=== PATIENT | male | born 1960 | race Caucasian/White ===

== ENCOUNTER 2017-01-26 14:11 | Observation (INO) | payer OTHER ==
--- NOTE | 2017-01-26 14:50 | XR ---
EXAMINATION TYPE: XR chest 2V DATE OF EXAM: 01/26/2017 COMPARISON: NONE HISTORY: Shortness of breath TECHNIQUE: Frontal and lateral views of the chest are obtained. FINDINGS: Scattered senescent parenchymal changes noted. Hyperinflation compatible with COPD. No evidence for infiltrate. No evidence for atelectasis. Heart size is stable. Mediastinal structures are stable and grossly unremarkable. No evidence for hilar prominence. Degenerative changes dorsal spine. IMPRESSION: 1. No evidence for acute pulmonary disease.
--- NOTE | 2017-01-26 14:58 | ED ---
Chest Pain HPI - General Chief Complaint: Chest Pain Stated Complaint: Chest pain Time Seen by Provider: 01/26/17 14:11 Source: patient, EMS, RN notes reviewed Mode of arrival: EMS Limitations: no limitations - History of Present Illness Initial Comments: This is a 56-year-old male who presents by EMS with complaints of left-sided chest pain. It woke him up from sleep this morning it was stabbing in nature located below his left nipple of his breast. Assessment nausea he was not feeling himself. He states he originally pain was 7-8/10 in severity is now 4-5 /10 he was given aspirin as well as 2 nitroglycerin. The first nitroglycerin did not help much a second one seemed to. He states this does feel different than the pain he had from a heart attack 20 years ago. He is currently in rehab [facility] for last 19 days for heroin and cocaine and alcohol abuse. He does relate he had a stress test about 2 months ago that was normal. He also states he had an MRI done of his chest he thought he may have left-sided breast cancer he is not sure though he is got conflicting reports. MD Complaint: chest pain - Related Data Home Medications Medication Instructions Recorded Confirmed Multivitamins, Thera [Multivitamin 1 tab PO DAILY 01/26/17 01/26/17 (formulary)] Sertraline HCl [Zoloft] 50 mg PO DAILY 01/26/17 01/26/17 busPIRone HCl [Buspar] 10 mg PO BID 01/26/17 01/26/17 traZODone HCL 150 mg PO HS 01/26/17 01/26/17 Allergies Allergy/AdvReac Type Severity Reaction Status Date / Time Penicillins Allergy Rash/Hives Verified 01/26/17 14:40 Review of Systems ROS Statement: Those systems with pertinent positive or pertinent negative responses have been documented in the HPI. ROS Other: All systems not noted in ROS Statement are negative. EKG Findings - EKG Results: EKG: interpreted by DANIEL, sinus rhythm (Sinus rhythm with rate of 85 MN interval 134 QRS 90 QT/QTC of 466/445 sinus bradycardia no acute ST-T wave changes there is poor R-wave progression noted there is no change from the EKG submitted by EMS.) Past Medical History Past Medical History: Hyperlipidemia, Hypertension, Myocardial Infarction ([place]) History of Any Multi-Drug Resistant Organisms: None Reported Past Surgical History: Orthopedic Surgery, Tonsillectomy Past Psychological History: No Psychological Hx Reported Smoking Status: Current every day smoker Past Alcohol Use History: Daily Past Drug Use History: Heroin, Prescription Drug Abuse General Exam - General Exam Comments Initial Comments: This is a well-developed asthenic appearing male Limitations: no limitations General appearance: alert, in no apparent distress Head exam: Present: atraumatic, normocephalic, normal inspection Eye exam: Present: normal appearance, PERRL, EOMI. Absent: scleral icterus, conjunctival injection, periorbital swelling ENT exam: Present: normal exam, mucous membranes moist Neck exam: Present: normal inspection. Absent: tenderness, meningismus, lymphadenopathy Respiratory exam: Present: normal lung sounds bilaterally, chest wall tenderness (Necessary chest wall costochondral tenderness palpation some tenderness over the left breast nipple area note definite mass palpable.). Absent: respiratory distress, wheezes, rales, rhonchi, stridor Cardiovascular Exam: Present: normal rhythm, bradycardia, normal heart sounds. Absent: systolic murmur, diastolic murmur, rubs, gallop, clicks GI/Abdominal exam: Present: soft, normal bowel sounds. Absent: distended, tenderness, guarding, rebound, rigid Extremities exam: Present: normal inspection, full ROM, normal capillary refill. Absent: tenderness, pedal edema, joint swelling, calf tenderness Back exam: Present: normal inspection Neurological exam: Present: alert, oriented X3, CN II-XII intact Psychiatric exam: Present: normal affect, normal mood Skin exam: Present: warm, dry, intact, normal color. Absent: rash Course Vital Signs 01/26/17 01/26/17 14:15 16:15 Temperature 98.3 F Pulse Rate 54 L 53 L Respiratory 18 18 Rate Blood Pressure 120/77 133/80 O2 Sat by Pulse 100 99 Oximetry Chest Pain MDM - MDM I did review the imaging and reports no acute findings. Patient is still having intermittent episodes of some sharp pain he does state that the nitroglycerin did help before he had a discussion regarding atypical chest pain he will be admitted I did discuss case with the hospitalist service. Disposition Clinical Impression: Atypical chest pain Disposition: ADMITTED IP TO THIS [facility] Condition: Stable Referrals: None,Stated [Primary Care Provider] - 1-2 days
[2017-01-26 15:34] LABS: Basophils # (A) 0.1 k/uL (0-0.2); Basophils % (A) 1 %; CH 33.1; Eosinophils # (A) 0.2 k/uL (0-0.7); Eosinophils % (A) 3 %; HCT 46.1 % (39.0-53.0); HDW 2.35; HGB 15.5 gm/dL (13.0-17.5); Luc # (Auto) 0.13; Luc % (Auto) 2; Lymphocytes # (A) 2.2 k/uL (1.0-4.8); Lymphocytes % (A) 26 %; MCH 32.9 pg (25.0-35.0); MCHC 33.6 g/dL (31.0-37.0); MCV 97.7 fL (80.0-100.0); Mean Platelet Volume 7.3; Monocytes # (A) 0.4 k/uL (0-1.0); Monocytes % (A) 5 %; Neutrophils # (A) 5.6 k/uL (1.3-7.7); Neutrophils % (A) 65 %; RBC 4.72 m/uL (4.30-5.90); RDW 14.1 % (11.5-15.5); WBC 8.7 k/uL (3.8-10.6); WBC (Perox) 7.86
[2017-01-26 15:39] LABS: INR 1.1 (<1.2); Partial Thromboplastin Time 23.9 sec (22.0-30.0); Prothrombin Time 11.1 sec (9.0-12.0)
[2017-01-26 15:47] LABS: ALT 27 U/L (21-72); AST 19 U/L (17-59); Alkaline Phosphatase 62 U/L (38-126); Amylase 57 U/L (30-110); Anion Gap 8 mmol/L; Blood Urea Nitrogen 9 mg/dL (9-20); Calcium 9.4 mg/dL (8.4-10.2); Carbon Dioxide 29 mmol/L (22-30); Chloride 102 mmol/L (98-107); Glucose 86 mg/dL (74-99); Magnesium 2.2 mg/dL (1.6-2.3); Non-African American GFR(MDRD) >60 (>60 ml/min/1.73 sqM); Potassium 4.8 mmol/L (3.5-5.1); Sodium 139 mmol/L (137-145); Total Bilirubin 0.4 mg/dL (0.2-1.3); Total Protein 6.3 g/dL (6.3-8.2)
[2017-01-26 15:49] LABS: Creatine Kinase 39 U/L (55-170)
[2017-01-26 16:03] LABS: Creatine Kinase MB 1.2 ng/mL (0.0-2.4); Troponin I <0.012 ng/mL (0.000-0.034)
[2017-01-26] MEDS ORDERED: KETOROLAC 30 MG/ML 1 ML VIAL IVP STA (16:07)
[2017-01-26] MEDS ORDERED: HEPARIN SODIUM,PORCINE 5,000 UNIT/ML 1 ML VIAL IV ONE (17:01)
[2017-01-26] MEDS ORDERED: NITROGLYCERIN SL TABS 0.4 MG TAB SUBLINGUAL PRN (17:01)
[2017-01-26] MEDS ORDERED: SODIUM CHLORIDE 0.9% 1,000 ML IV STA (17:22)
[2017-01-26] MEDS ORDERED: HEPARIN SODIUM,PORCINE/D5W PMX 25,000 UNIT in DEXTROSE/WATER 1 500ML.BAG IV SCH (17:30)
[2017-01-26 18:32] VITALS: BMI 23.0
[2017-01-26] MEDS ORDERED: LORazepam 2 MG/ML SYRINGE IV PRN (18:39)
[2017-01-26] MEDS: NITROGLYCERIN OINT 1 INCH/GM PACKET TOPICAL SCH ×2 (19:56→23:12)
[2017-01-26] MEDS ORDERED: traZODone HCL 50 MG TAB PO SCH (21:00)
[2017-01-26] MEDS: busPIRone HCl 10 MG TAB PO SCH (21:03)
[2017-01-26] MEDS: HEPARIN SODIUM,PORCINE 5,000 UNIT/ML 1 ML VIAL IV PRN (23:24)
[2017-01-26 23:25] LABS: Creatine Kinase 37 U/L (55-170)
[2017-01-26 23:37] LABS: Troponin I <0.012 ng/mL (0.000-0.034)
[2017-01-27 01:12] VITALS: RESP 18
[2017-01-27] MEDS: NITROGLYCERIN OINT 1 INCH/GM PACKET TOPICAL SCH ×2 (05:49→13:28)
[2017-01-27] MEDS: HEPARIN SODIUM,PORCINE 5,000 UNIT/ML 1 ML VIAL IV PRN (06:29)
[2017-01-27 06:44] LABS: Creatine Kinase 34 U/L (55-170)
[2017-01-27 06:47] LABS: Cholesterol 155 mg/dL (<200); HDL Cholesterol 45 mg/dL (40-60)
[2017-01-27 06:55] LABS: Troponin I <0.012 ng/mL (0.000-0.034)
[2017-01-27] MEDS ORDERED: SERTRALINE 50 MG TAB PO SCH (09:00)
[2017-01-27] MEDS ORDERED: NICOTINE 21MG/24HR PATCH TRANSDERM SCH (09:00)
[2017-01-27] MEDS ORDERED: ASPIRIN 325 MG TAB PO SCH (09:00)
--- NOTE | 2017-01-27 10:56 | P.CRDCN ---
History of Present Illness Consult date: 01/27/17 History of present illness: This is a 56-year-old gentleman with history of ischemic heart disease who had a myocardial infarction about 15-20 years ago. He claims that he was treated and [facility]. He doesn't seem to be that patient had any stent placement. Since then patient hadn't had any major issues. Patient is currently in [facility] for rehab for heroine addiction .About 3 months ago patient had a stress test for evaluation of similar chest pains. The pain is felt in the left nipple area which is very tender with intermittent sharp pain that goes deeper. The pains appear to be typical. But don't have actual report of the stress test but patient walked on the treadmill for about 10 minutes and he was told that the test was negative. His cardiac enzymes are so far negative. From Cardec standpoint patient could be discharged home. Follow-up is with his own physician. Review of Systems As per the chart Past Medical History Past Medical History: Hyperlipidemia, Hypertension, Myocardial Infarction ([place]), Neurologic Disorder, Osteoarthritis ([place]) Last Myocardial Infarction Date:: 1996 History of Any Multi-Drug Resistant Organisms: None Reported Past Surgical History: Adenoidectomy, Orthopedic Surgery, Tonsillectomy Additional Past Surgical History / Comment(s): right finger, Smoking Status: Current every day smoker - Past Family History Mother Family Medical History: Neurologic Disorder Additional Family Medical History / Comment(s): suicide Father Family Medical History: Cancer Additional Family Medical History / Comment(s): lung cancer- Medications and Allergies Home Medications Medication Instructions Recorded Confirmed Type Multivitamins, Thera [Multivitamin 1 tab PO DAILY 01/26/17 01/26/17 History (formulary)] Nicotine 21Mg/24Hr Patch [Habitrol 1 each TRANSDERM DAILY 01/26/17 01/26/17 History 21Mg/24Hr Patch] Sertraline HCl [Zoloft] 50 mg PO DAILY 01/26/17 01/26/17 History busPIRone HCl [Buspar] 10 mg PO TID 01/26/17 01/26/17 History traZODone HCL 150 mg PO HS 01/26/17 01/26/17 History Allergies Allergy/AdvReac Type Severity Reaction Status Date / Time Penicillins Allergy Rash/Hives Verified 01/26/17 14:40 Physical Exam Vitals: Vital Signs Temp Pulse Pulse Resp BP BP Pulse Ox 01/27/17 08:00 98.1 F 68 18 103/67 98 01/27/17 04:00 97.9 F 50 L 18 132/73 99 01/27/17 00:00 97.7 F 60 18 130/91 99 01/26/17 23:14 17 01/26/17 19:46 17 01/26/17 19:27 97.6 F 54 L 17 141/86 99 01/26/17 17:39 97.6 F 54 L 18 148/87 100 01/26/17 17:20 98.0 F 58 L 20 121/68 99 01/26/17 16:15 53 L 18 133/80 99 01/26/17 14:15 98.3 F 54 L 18 120/77 100 Intake and Output 01/26/17 01/27/17 01/27/17 22:59 06:59 14:59 Intake Total 240 684.126 Balance 240 684.126 Intake: IV 240 0.9@20 120 Heparin Sodium,Porcine/ 120 D5w Pmx 25,000 unit In Dextrose/Water 1 500ml. bag @ 12 UNITS/KG/HR 16. 32 mls/hr IV .Q24H [facility] Rx #:[id number] Intake, IV Titration 244.126 Amount Heparin Sodium,Porcine/ 244.126 D5w Pmx 25,000 unit In Dextrose/Water 1 500ml. bag @ 12 UNITS/KG/HR 16. 32 mls/hr IV .Q24H [facility] Rx #:[id number] Oral 240 200 Other: Voiding Method Toilet Toilet # Voids 2 Weight 66.763 kg GENERAL EXAM: Patient is alert and oriented and doesn't appear to be in any acute distress HEENT: Normocephalic. Normal reaction of pupils, equal size, normal range of extraocular motion. No erythema or exudates in the throat. NECK: No masses, no nuchal rigidity. CHEST: No chest wall deformity. He isn't has extreme tenderness upon palpation of the nipple LUNGS: Equal air entry with no crackles or wheeze. HEART: S1 and S2 normal with no audible mumurs or gallops. Regular rhythm, femorals equal on both sides.. ABDOMEN: No hepatosplenomegaly, normal bowel sounds, no guarding or rigidity. SKIN: No rashes CENTRAL NERVOUS SYSTEM: No focal deficits. EXTREMITIES: No cyanosis, clubbing or edema. Results 01/26/17 15:10 01/26/17 15:10 Cardiac Enzymes 01/26/17 01/26/17 01/26/17 Range/Units 15:10 15:10 22:22 AST 19 (17-59) U/L CK-MB (CK-2) 1.2 1.0 (0.0-2.4) ng/mL Troponin I <0.012 <0.012 (0.000-0.034) ng/mL 01/27/17 Range/Units 05:21 AST (17-59) U/L CK-MB (CK-2) 1.0 (0.0-2.4) ng/mL Troponin I <0.012 (0.000-0.034) ng/mL Coagulation 01/26/17 01/26/17 01/27/17 Range/Units 15:10 22:22 05:21 PT 11.1 (9.0-12.0) sec APTT 23.9 32.1 H 42.8 H (22.0-30.0) sec Lipids 01/27/17 Range/Units 05:21 Triglycerides 70 (<150) mg/dL Cholesterol 155 (<200) mg/dL HDL Cholesterol 45 (40-60) mg/dL CBC 01/26/17 Range/Units 15:10 WBC 8.7 (3.8-10.6) k/uL RBC 4.72 (4.30-5.90) m/uL Hgb 15.5 (13.0-17.5) gm/dL Hct 46.1 (39.0-53.0) % Plt Count 251 (150-450) k/uL Comprehensive Metabolic Panel 01/26/17 Range/Units 15:10 Sodium 139 (137-145) mmol/L Potassium 4.8 (3.5-5.1) mmol/L Chloride 102 (98-107) mmol/L Carbon Dioxide 29 (22-30) mmol/L BUN 9 (9-20) mg/dL Creatinine 0.74 (0.66-1.25) mg/dL Glucose 86 (74-99) mg/dL Calcium 9.4 (8.4-10.2) mg/dL AST 19 (17-59) U/L ALT 27 (21-72) U/L Alkaline Phosphatase 62 (38-126) U/L Total Protein 6.3 (6.3-8.2) g/dL Albumin 3.7 (3.5-5.0) g/dL Current Medications Generic Name Dose Route Start Last Admin Trade Name Freq PRN Reason Stop Dose Admin Aspirin 325 mg 01/27/17 09:00 Aspirin PO DAILY [facility] Buspirone HCl 10 mg 01/26/17 21:00 01/26/17 21:03 Buspar PO 10 mg BID [facility] Administration Heparin Sodium (Porcine) 0 unit 01/26/17 23:07 01/27/17 06:29 Heparin IV 1,650 unit PER PROTOCOL PRN Administration Low PTT Protocol Heparin Sodium/Dextrose 25,000 500 mls @ 16.32 mls/hr 01/26/17 17:30 06:25 unit/ IV Solution IV 17 units/kg/hr .Q24H [facility] 23.13 mls/hr Protocol Titration 12 UNITS/KG/HR Sodium Chloride 1,000 mls @ 20 mls/hr 01/26/17 17:22 01/26/17 17:05 Saline 0.9% IV 01/27/17 17:21 20 mls/hr .Q24H [facility] Administration Lorazepam 1 mg 01/26/17 18:39 Ativan IV Q6HR PRN Anxiety Multivitamins 1 each 01/27/17 12:00 Theragran PO 1200 [facility] Nicotine 1 patch 01/27/17 09:00 Habitrol 21mg/24hr Patch TRANSDERM DAILY [facility] Nitroglycerin 1 inch 01/26/17 18:00 01/27/17 05:49 Nitro-Bid Oint TOPICAL 1 inch Q6HR [facility] Administration Nitroglycerin 0.4 mg 01/26/17 17:01 Nitrostat SUBLINGUAL Q5M PRN Chest Pain Sertraline HCl 50 mg 01/27/17 09:00 Zoloft PO DAILY [facility] Trazodone HCl 150 mg 01/26/17 21:00 01/26/17 21:03 Desyrel PO 150 mg HS [facility] Administration Intake and Output 01/26/17 01/27/17 01/27/17 22:59 06:59 14:59 Intake Total 240 684.126 Balance 240 684.126 Intake: IV 240 0.9@20 120 Heparin Sodium,Porcine/ 120 D5w Pmx 25,000 unit In Dextrose/Water 1 500ml. bag @ 12 UNITS/KG/HR 16. 32 mls/hr IV .Q24H [facility] Rx #:[id number] Intake, IV Titration 244.126 Amount Heparin Sodium,Porcine/ 244.126 D5w Pmx 25,000 unit In Dextrose/Water 1 500ml. bag @ 12 UNITS/KG/HR 16. 32 mls/hr IV .Q24H [facility] Rx #:[id number] Oral 240 200 Other: Voiding Method Toilet Toilet # Voids 2 Weight 66.763 kg 01/26/17 15:10 01/26/17 15:10 EKG Interpretations (text) Sinus rhythm with a ST-T changes in anterolateral leads which appear to be chronic Assessment and Plan (1) History of ischemic heart disease Status: Acute (2) Atypical chest pain Status: Acute (3) Drug addiction Status: Acute Plan: His chest pains are atypical. His cardiac enzymes are negative. His stress test about 3 months ago was not size to of ischemia. From Cardec standpoint patient could be discharged home..
--- NOTE | 2017-01-27 11:12 | HP ---
DATE OF SERVICE: 01/26/2017 CHIEF COMPLAINT: Chest pain. HISTORY OF PRESENT ILLNESS: This 56-year-old gentleman with history of past medical history of hypertension, hyperlipidemia, myocardial infarction 20 year sago, has been at [facility] for cocaine, heroin and alcohol. The patient woke up this morning and patient complained of left sided stabbing type of pain came to [facility] and admitted for further evaluation and treatment. Patient apparently had a stress test about 3 months ago. Patient also was apparently evaluated for breast cancer of the left breast also. The pain is mostly located around the left nipple and the patient will be closely monitored. There is no history of any fever, rigors. No history of headache, loss of consciousness or seizures. PAST MEDICAL HISTORY: Hypertension, hyperlipidemia, history of myocardial infarction, history of adenoidectomy, history of bipolar. Medications prior to admission include home medications are: 1. Habitrol 21 daily. 2. BuSpar 10 mg p.o. t.i.d. 3. Trazodone 150 mg q.h.s. 4. Multivitamin 1 p.o. daily. 5. Zoloft 50 mg p.o. daily. Allergies are PENICILLIN. FAMILY HISTORY: History of suicide and neurological disorder. SOCIAL HISTORY: History of polysubstance abuse, cocaine, heroin, prescription drug abuse. REVIEW OF SYSTEMS: ENT: No diminished hearing or diminished vision. CARDIOVASCULAR SYSTEM: No angina. RESPIRATORY SYSTEM: As mentioned earlier. GI: As mentioned earlier. : No dysuria. NERVOUS SYSTEM: No numbness or weakness. ALLERGY/IMMUNOLOGY: No history of asthma. MUSCULOSKELETAL: As mentioned earlier. HEMATOLOGY: No history of anemia. ENDOCRINE: No history of diabetes. CONSTITUTIONAL: Negative. DERMATOLOGY: Negative. RHEUMATOLOGY: Negative. PSYCHIATRY: As mentioned earlier. PHYSICAL EXAMINATION: The patient is alert and oriented x3. Pulse is 58, blood pressure 129/68, respirations 20, temperature 98 degrees. Pulse ox 99% on 2 L. HEENT: Conjunctivae normal. Oral mucosa moist. NECK: No jugular venous distention. No carotid bruit. No lymph node enlargement. CARDIOVASCULAR: S1 and S2, muffled. No S3, no S4. RESPIRATORY: Breath sounds diminished at the bases. No rhonchi, no crackles. ABDOMEN: Soft. Nontender. No mass palpable. LEGS: No edema, no swelling. NERVOUS SYSTEM: Higher function as mentioned earlier. Moves all 4 limbs. No focal motor or sensory deficits. LYMPHATIC: No lymphadenopathy of the neck, axillae or groin. SKIN: No ulcers, rashes or bleeding. EXAMINATION OF LEFT CHEST: Minimal gynecomastia left side and some local tenderness also present. No discharge and no lymph node enlargement. LABS: CBC within normal limits. CK is 13. ASSESSMENT: 1. Left sided chest pain, possible musculoskeletal, rule out coronary artery disease. 2. History of polysubstance abuse. 3. Hypertension. 4. Hyperlipidemia. 5. History of myocardial infarction. 6. History of bipolar. RECOMMENDATIONS AND DISCUSSION: This 56-year-old gentleman presented with multiple complex medical issues. Will monitor the patient closely. Continue the current medications, continue symptomatic treatment. Otherwise, at this time I will recommend rule out myocardial infarction, closely follow with Cardiology, unstable angina protocol. Symptomatic treatment will be provided. Guarded prognosis because of multiple complex medical issues. Further recommendations to follow. We will obtain the old records about the recent stress test also. Further recommendations to follow. [facility]
[2017-01-27] MEDS ORDERED: MULTIVITAMINS, THERA 1 EACH TAB PO SCH (12:00)
[2017-01-27 12:13] VITALS: BP 105/73; PULSE 56; TEMP 98
[2017-01-27] MEDS: busPIRone HCl 10 MG TAB PO SCH (13:22)
--- NOTE | 2017-01-27 14:06 | P.DS ---
Providers Date of admission: 01/26/17 17:01 Attending physician: Del Stone Consults: 01/26/17 17:01 Consult Physician Urgent Consulting Provider: Mg Bella Consult Reason/Comments: Atypical chest pain Do you want consulting provider notified?: Yes Primary care physician: Stated None Hospital Course: This 56-year-old gentleman who was receiving rehabilitation and second heart facility was admitted with left-sided chest pain. Urology saw the patient. Microinfarction was ordered. Chest pain was probably atypical and noncardiac in nature. Did have recent stresses. Next On exam vitals stable cardio S1-S2 normal respirator system. The patient The patient be discharged in stable condition with guarded prognosis and X Assessment #1 left-sided chest pain possibly muscle skeletal Polysubstance abuse Hypertension Hyperlipidemia History of myocardial infarction bipolar Patient Condition at Discharge: Stable Plan - Discharge Summary New Discharge Prescriptions: Continue Multivitamins, Thera [Multivitamin (formulary)] 1 tab PO DAILY traZODone HCL 150 mg PO HS Sertraline HCl [Zoloft] 50 mg PO DAILY Nicotine 21Mg/24Hr Patch [Habitrol] 1 each TRANSDERM DAILY Changed busPIRone HCl [Buspar] 10 mg PO BID #0 Discharge Medication List Multivitamins, Thera [Multivitamin (formulary)] 1 tab PO DAILY 01/26/17 [History ] Nicotine 21Mg/24Hr Patch [Habitrol] 1 each TRANSDERM DAILY 01/26/17 [History] Sertraline HCl [Zoloft] 50 mg PO DAILY 01/26/17 [History] traZODone HCL 150 mg PO HS 01/26/17 [History] busPIRone HCl [Buspar] 10 mg PO BID #0 01/27/17 [Rx] Follow up Appointment(s)/Referral(s): Dr. Arvind PCP patient's own out of [facility] [Other] - 3 Days
== END 2017-01-27 15:49 | disposition home or self-care (01) ==
LOC: EC 14:11 → 3OBS 17:01
PROVIDERS: ADMIT Internal Medicine; ATTEND Internal Medicine
DX: R07.89 Other chest pain (principal); I10 Essential (primary) hypertension; E78.5 Hyperlipidemia, unspecified; I25.2 Old myocardial infarction; F31.9 Bipolar disorder, unspecified; Z79.899 Other long term (current) drug therapy; Z88.0 Allergy status to penicillin; F17.200 Nicotine dependence, unspecified, uncomplicated; F19.20 Other psychoactive substance dependence, uncomplicated
CPT/HCPCS: 99285 ×2; 96375 ×2; 96376 ×4; 96365; 96366 ×2; 36415; 93005; 83880; 80061; 80053; 82150; 82550 ×2; 82553 ×2; 83690; 83735; 84484 ×2; 85025; 85610; 85730 ×2; 71020; G0378 ×2; S4990; J1644 ×3; J1885

== ENCOUNTER 2020-10-27 15:21 | Inpatient (IN) | payer OTHER ==
--- NOTE | 2020-10-27 15:53 | ED ---
General Adult HPI - General Chief complaint: Chest Pain Stated complaint: chest pain Time Seen by Provider: 10/27/20 15:32 Source: patient Mode of arrival: ambulatory Limitations: no limitations - History of Present Illness Initial comments: Dictation was produced using [employer] dictation software. please excuse any grammatical, word or spelling errors. This patient was cared for during a federal and state declared state of emergency secondary to Covid 19 Chief Complaint: 60-year-old male with past medical history coronary artery dis ease, multiple coronary artery stents presents with chest pain History of Present Illness: Is a 60-year-old value was transferred here from [facility]. He is currently in rehabilitation for heroin abuse. Patient states for the last 3 days he's been having pressure-like sensation to his left anterior chest radiates to the back, left jaw and left upper extremity. Patient states the symptoms remind him of previous heart attack. He was brought to the emergency department by EMS. Patient was given nitroglycerin and aspirin with improvement of symptoms. Patient states he has minimal symptoms currently. No skin bleeding or paresthesias to the extremities or legs. Reports that most of his cardiac care was done and [facility] in [place]. 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 Alves The ROS documented in this emergency department record has been reviewed and confirmed by me. Those systems with pertinent positive or negative responses have been documented in the HPI. All other systems are other negative and/or noncontributory. PHYSICAL EXAM: General Impression: Alert and oriented x3, not in acute distress HEENT: Normocephalic atraumatic, extra-ocular movements intact, pupils equal and reactive to light bilaterally, mucous membranes moist. Cardiovascular: Heart regular rate and rhythm Chest: Able to complete full sentences, no retractions, no tachypnea Abdomen: abdomen soft, non-tender, non-distended, no organomegaly Musculoskeletal: Pulses present and equal in all extremities, no peripheral edema Motor: no focal deficits noted Neurological: CN II-XII grossly intact, no focal motor or sensory deficits noted Skin: Intact with no visualized rashes Psych: Normal affect and mood ED course: 60-year-old male presents to the emergency department for chest pain concerning for acute coronary syndrome. He has multiple risk factors. Signs upon arrival are within acceptable limits. Repeat EKG performed 50 minutes later shows no dynamic changes. Laboratory evaluation obtained. CBC, coag panel, are unremarkable. Metabolic panel shows glucose of 71. Troponin is 0. 346. Chest shows no acute processes. Patient reevaluated bedside at approximately 4:55 PM. Denies any symptoms at this time. Patient is ready given aspirin by EMS. Patient started on heparin. Clinical presentation consistent with NSTEMI. Case is discussed with Dr. Bella of cardiology who is aware of patient and will follow as consultation. Case discussed with Dr. Salas who is willing to accept patients care on behalf of [facility]. Patient is agreeable. Patient be admitted for medical monitoring, cardiac monitoring, cardiology consultation EKG interpretation: Ventricular rate 62, sinus bradycardia, WI interval 144, QRS 90, QTC 428. No WI prolongation, no QTC prolongation. EKG compared to 01/27/2017. Patient has T-wave inversions in the lateral precordial leads. There is no more recent EKG for comparison. - Related Data Home Medications Medication Instructions Recorded Confirmed Multivitamins, Thera [Multivitamin 1 tab PO DAILY 01/26/17 10/27/20 (formulary)] Acetaminophen [Tylenol Arthritis] 650 mg PO Q4H PRN 10/27/20 10/27/20 Calcium 1000mg/Magnesium 500mg 1 cap PO TID PRN 10/27/20 10/27/20 Calcium/Magnesium/Zinc 2 tab PO TID PRN 10/27/20 10/27/20 [Cntlzii-Ghsargluh-Wypl Tablet] Chlorpheniramine Maleate 4 mg PO Q4H PRN 10/27/20 10/27/20 [Chlor-Trimeton] Ibuprofen [Motrin] 600 mg PO Q6HR PRN 10/27/20 10/27/20 Isosorbide Mononitrate ER [Imdur] 30 mg PO DAILY 10/27/20 10/27/20 LORazepam [Ativan] 1 - 2 mg PO Q4H PRN 10/27/20 10/27/20 busPIRone HCl [Buspar] 10 mg PO TID PRN 10/27/20 10/27/20 ondansetron HCL [Zofran] 8 mg PO Q6H PRN 10/27/20 10/27/20 traZODone HCL 50 - 150 mg PO HS 10/27/20 10/27/20 Allergies Allergy/AdvReac Type Severity Reaction Status Date / Time Penicillins Allergy Rash/Hives Verified 10/27/20 16:52 Review of Systems ROS Statement: Those systems with pertinent positive or pertinent negative responses have been documented in the HPI. ROS Other: All systems not noted in ROS Statement are negative. Past Medical History Past Medical History: Hyperlipidemia, Hypertension, Myocardial Infarction ([place]), Neurologic Disorder, Osteoarthritis (OA) Last Myocardial Infarction Date:: 1996 History of Any Multi-Drug Resistant Organisms: None Reported Past Surgical History: Adenoidectomy, Heart Catheterization With Stent, Orthopedic Surgery, Tonsillectomy Additional Past Surgical History / Comment(s): right finger, Past Psychological History: Bipolar Smoking Status: Current every day smoker Past Alcohol Use History: Daily Past Drug Use History: Cocaine, Heroin, Prescription Drug Abuse - Past Family History Mother Family Medical History: Neurologic Disorder Additional Family Medical History / Comment(s): suicide Father Family Medical History: Cancer Additional Family Medical History / Comment(s): lung cancer- General Exam Limitations: no limitations Course Vital Signs 10/27/20 10/27/20 10/27/20 15:31 16:00 16:30 Temperature 98.1 F Pulse Rate 58 L 55 L 59 L Respiratory 18 19 19 Rate Blood Pressure 125/87 125/87 114/83 O2 Sat by Pulse 98 99 98 Oximetry Medical Decision Making - Lab Data Result diagrams: 10/27/20 15:43 10/27/20 15:43 Lab Results 10/27/20 10/27/20 10/27/20 Range/Units 15:43 15:43 15:43 WBC 6.1 (3.8-10.6) k/uL RBC 4.23 L (4.30-5.90) m/uL Hgb 13.5 (13.0-17.5) gm/dL Hct 39.9 (39.0-53.0) % MCV 94.1 (80.0-100.0) fL MCH 32.0 (25.0-35.0) pg MCHC 34.0 (31.0-37.0) g/dL RDW 12.7 (11.5-15.5) % Plt Count 321 (150-450) k/uL MPV 6.7 Neutrophils % 55 % Lymphocytes % 32 % Monocytes % 8 % Eosinophils % 2 % Basophils % 1 % Neutrophils # 3.3 (1.3-7.7) k/uL Lymphocytes # 2.0 (1.0-4.8) k/uL Monocytes # 0.5 (0-1.0) k/uL Eosinophils # 0.1 (0-0.7) k/uL Basophils # 0.1 (0-0.2) k/uL PT 9.6 (9.0-12.0) sec INR 0.9 (<1.2) APTT 21.8 L (22.0-30.0) sec Sodium 136 L (137-145) mmol/L Potassium 4.5 (3.5-5.1) mmol/L Chloride 101 (98-107) mmol/L Carbon Dioxide 30 (22-30) mmol/L Anion Gap 5 mmol/L BUN 15 (9-20) mg/dL Creatinine 0.71 (0.66-1.25) mg/dL Est GFR (CKD-EPI)AfAm >90 (>60 ml/min/1.73 sqM) Est GFR (CKD-EPI)NonAf >90 (>60 ml/min/1.73 sqM) Glucose 71 L (74-99) mg/dL Calcium 9.3 (8.4-10.2) mg/dL Magnesium 2.4 H (1.6-2.3) mg/dL Total Bilirubin 0.2 (0.2-1.3) mg/dL AST 35 (17-59) U/L ALT 29 (4-49) U/L Alkaline Phosphatase 63 (38-126) U/L Troponin I (0.000-0.034) ng/mL Total Protein 6.2 L (6.3-8.2) g/dL Albumin 3.5 (3.5-5.0) g/dL Lipase 37 (23-300) U/L 10/27/20 Range/Units 15:43 WBC (3.8-10.6) k/uL RBC (4.30-5.90) m/uL Hgb (13.0-17.5) gm/dL Hct (39.0-53.0) % MCV (80.0-100.0) fL MCH (25.0-35.0) pg MCHC (31.0-37.0) g/dL RDW (11.5-15.5) % Plt Count (150-450) k/uL MPV Neutrophils % % Lymphocytes % % Monocytes % % Eosinophils % % Basophils % % Neutrophils # (1.3-7.7) k/uL Lymphocytes # (1.0-4.8) k/uL Monocytes # (0-1.0) k/uL Eosinophils # (0-0.7) k/uL Basophils # (0-0.2) k/uL PT (9.0-12.0) sec INR (<1.2) APTT (22.0-30.0) sec Sodium (137-145) mmol/L Potassium (3.5-5.1) mmol/L Chloride (98-107) mmol/L Carbon Dioxide (22-30) mmol/L Anion Gap mmol/L BUN (9-20) mg/dL Creatinine (0.66-1.25) mg/dL Est GFR (CKD-EPI)AfAm (>60 ml/min/1.73 sqM) Est GFR (CKD-EPI)NonAf (>60 ml/min/1.73 sqM) Glucose (74-99) mg/dL Calcium (8.4-10.2) mg/dL Magnesium (1.6-2.3) mg/dL Total Bilirubin (0.2-1.3) mg/dL AST (17-59) U/L ALT (4-49) U/L Alkaline Phosphatase (38-126) U/L Troponin I 0.346 H* (0.000-0.034) ng/mL Total Protein (6.3-8.2) g/dL Albumin (3.5-5.0) g/dL Lipase (23-300) U/L Disposition Clinical Impression: ACS (acute coronary syndrome), NSTEMI (non-ST elevated myocardial infarction) Disposition: ADMITTED IP TO THIS [facility] Condition: Fair Referrals: Nonstaff,Physician [Primary Care Provider] - 1-2 days Decision Time: 17:07
[2020-10-27 16:06] LABS: Basophils # (A) 0.1 k/uL (0-0.2); Basophils % (A) 1 %; Eosinophils # (A) 0.1 k/uL (0-0.7); Eosinophils % (A) 2 %; HCT 39.9 % (39.0-53.0); HGB 13.5 gm/dL (13.0-17.5); Lymphocytes % (A) 32 %; MCV 94.1 fL (80.0-100.0); Mean Platelet Volume 6.7; Monocytes # (A) 0.5 k/uL (0-1.0); Monocytes % (A) 8 %; Neutrophils # (A) 3.3 k/uL (1.3-7.7); Neutrophils % (A) 55 %; Platelet Count 321 k/uL (150-450); RBC 4.23 m/uL (4.30-5.90); RDW 12.7 % (11.5-15.5); WBC 6.1 k/uL (3.8-10.6)
[2020-10-27 16:16] LABS: ALT 29 U/L (4-49); AST 35 U/L (17-59); African American GFR (CKD) >90 (>60 ml/min/1.73 sqM); Albumin 3.5 g/dL (3.5-5.0); Alkaline Phosphatase 63 U/L (38-126); Anion Gap 5 mmol/L; Blood Urea Nitrogen 15 mg/dL (9-20); Calcium 9.3 mg/dL (8.4-10.2); Carbon Dioxide 30 mmol/L (22-30); Chloride 101 mmol/L (98-107); Glucose 71 mg/dL (74-99); Lipase 37 U/L (23-300); Magnesium 2.4 mg/dL (1.6-2.3); Non-African American GFR(CKD) >90 (>60 ml/min/1.73 sqM); Potassium 4.5 mmol/L (3.5-5.1); Sodium 136 mmol/L (137-145); Total Bilirubin 0.2 mg/dL (0.2-1.3); Total Protein 6.2 g/dL (6.3-8.2)
--- NOTE | 2020-10-27 16:19 | XR ---
EXAMINATION TYPE: XR chest 2V DATE OF EXAM: 10/27/2020 COMPARISON: Chest x-ray January 26, 2017 HISTORY: Chest pain for 3 days. TECHNIQUE: Frontal and lateral views of the chest are obtained. FINDINGS: There is mild chronic parenchymal changes without suspicious focal air space opacity, pleu ral effusion, or pneumothorax seen. The cardiac silhouette size is stable and within normal limits. The osseous structures are intact. IMPRESSION: No acute process. No significant change from prior
[2020-10-27] MEDS ORDERED: HEPARIN SODIUM 1,000 UN/ML (10ML VL) IV ONE (16:36)
[2020-10-27] MEDS ORDERED: DEXTROSE 50% SYRINGE 50 ML IVP STA (16:36)
[2020-10-27] MEDS ORDERED: HEPARIN SODIUM 1,000 UN/ML (10ML VL) IV PRN (16:36)
[2020-10-27 16:47] LABS: INR 0.9 (<1.2); Partial Thromboplastin Time 21.8 sec (22.0-30.0); Prothrombin Time 9.6 sec (9.0-12.0)
[2020-10-27] MEDS ORDERED: NITROGLYCERIN SL TABS 0.4 MG TAB SUBLINGUAL PRN (17:04)
[2020-10-27] MEDS: HEPARIN SOD,PORK IN 0.45% NACL 25,000 UNIT in 0.45% NACL 1 250ML.BAG IV SCH (17:05)
[2020-10-27 17:31] LABS: Glucose,Whole Blood 236 mg/dL (75-99)
[2020-10-27] MEDS ORDERED: ACETAMINOPHEN TAB 325 MG TAB PO PRN (17:47)
[2020-10-27] MEDS ORDERED: NALOXONE 0.4 MG/ML 1 ML VIAL IV PRN (17:47)
[2020-10-27] MEDS ORDERED: NON FORMULARY DRUG (Calcium/Magnesium/Zinc [Calcium-Magnesium-Zinc Tablet] 1 EACH Tablet) PO PRN (17:48)
[2020-10-27] MEDS ORDERED: LORazepam 1 MG TAB PO PRN (17:48)
[2020-10-27] MEDS ORDERED: CALCIUM PO PRN (17:48)
[2020-10-27] MEDS ORDERED: ONDANSETRON 4 MG TAB PO PRN (17:48)
[2020-10-27] MEDS ORDERED: diphenhydrAMINE 25 MG CAP PO PRN (17:48)
[2020-10-27] MEDS ORDERED: NON FORMULARY DRUG (Acetaminophen [Tylenol Arthritis] 650 MG Tablet.Er) PO PRN (17:48)
[2020-10-27] MEDS ORDERED: busPIRone HCl 10 MG TAB PO PRN (17:48)
--- NOTE | 2020-10-27 18:43 | P.HPIM ---
History of Present Illness H&P Date: 10/27/20 Chief Complaint: Chest pain 60-year-old man with medical history of CAD with recent PCI, hypertension, hyperlipidemia, COPD, mood disorder, heroin/cocaine user in rehab, active nicotine user presented for chest pain. Patient says his pain started 3 days ago, sharp in nature on his left side. He cannot remember whether this was how it felt when he had his prior MO. He says that since these arrived, his pain has resolved. He does report compliance with his home medications, however, he doesn't appear to know what they are. He denies fevers, chills, nausea, vomiting, dyspnea, cough, abdominal pain, dysuria, dyschezia, numbness/weakness. In the emergency room, patient demonstrated elevated troponin to 0.34. Otherwise, CBC, BMP, LFTs, lipase were all within normal limits. Chest x-ray demonstrated hyperinflated lungs with flattening of the diaphragms. EKG demo nstrated sinus bradycardia with lateral T-wave inversions. Patient was started on a heparin drip, aspirin loaded, hospitalist service was asked to admit and cardiology was consulted. Review of Systems All Systems reviewed and pertinent positives and negatives noted in HPI, all other symptoms are negative Past Medical History Past Medical History: Hyperlipidemia, Hypertension, Myocardial Infarction ([place]), Neurologic Disorder, Osteoarthritis (OA) Last Myocardial Infarction Date:: 1996 History of Any Multi-Drug Resistant Organisms: None Reported Past Surgical History: Adenoidectomy, Heart Catheterization With Stent, Orthopedic Surgery, Tonsillectomy Additional Past Surgical History / Comment(s): right finger, Past Psychological History: Bipolar Smoking Status: Current every day smoker Past Alcohol Use History: Daily Past Drug Use History: Cocaine, Heroin, Prescription Drug Abuse - Past Family History Mother Family Medical History: Neurologic Disorder Additional Family Medical History / Comment(s): suicide Father Family Medical History: Cancer Additional Family Medical History / Comment(s): lung cancer- Medications and Allergies Home Medications Medication Instructions Recorded Confirmed Type Multivitamins, Thera [Multivitamin 1 tab PO DAILY 01/26/17 10/27/20 History (formulary)] Acetaminophen [Tylenol Arthritis] 650 mg PO Q4H PRN 10/27/20 10/27/20 History Calcium 1000mg/Magnesium 500mg 1 cap PO TID PRN 10/27/20 10/27/20 History Calcium/Magnesium/Zinc 2 tab PO TID PRN 10/27/20 10/27/20 History [Srlnkpm-Kegrfmtrq-Orao Tablet] Chlorpheniramine Maleate 4 mg PO Q4H PRN 10/27/20 10/27/20 History [Chlor-Trimeton] Ibuprofen [Motrin] 600 mg PO Q6HR PRN 10/27/20 10/27/20 History Isosorbide Mononitrate ER [Imdur] 30 mg PO DAILY 10/27/20 10/27/20 History LORazepam [Ativan] 1 - 2 mg PO Q4H PRN 10/27/20 10/27/20 History busPIRone HCl [Buspar] 10 mg PO TID PRN 10/27/20 10/27/20 History ondansetron HCL [Zofran] 8 mg PO Q6H PRN 10/27/20 10/27/20 History traZODone HCL 50 - 150 mg PO HS 10/27/20 10/27/20 History Allergies Allergy/AdvReac Type Severity Reaction Status Date / Time Penicillins Allergy Rash/Hives Verified 10/27/20 16:52 Physical Exam Osteopathic Statement: *. No significant issues noted on an osteopathic structural exam other than those noted in the History and Physical/Consult. Vitals: Vital Signs Temp Pulse Resp BP Pulse Ox 10/27/20 16:30 59 L 19 114/83 98 10/27/20 16:00 55 L 19 125/87 99 10/27/20 15:31 98.1 F 58 L 18 125/87 98 Intake and Output 10/27/20 10/27/20 10/27/20 06:59 14:59 22:59 Other: Weight 63.503 kg Gen: awake, alert HEENT: normocephalic, atraumatic, good hearing acuity, moist mucous membranes Resp: good air exchange, breathing comfortably with no accessory muscle use, clear to auscultation bilaterally without wheezes or crackles, symmetric chest expansion CVS: good distal perfusion x 4, regular rate and rhythm without murmurs GI: soft, NTTP, ND, appropriate bowel sounds : no SPT, no CVAT, aj catheter not present MSK: no pitting edema, no clubbing Neuro: non-focal, moving all extremities Psych: cooperative, euthymic mood Results CBC & Chem 7: 10/27/20 15:43 10/27/20 15:43 Labs: Abnormal Lab Results - Last 24 Hours (Table) 10/27/20 10/27/20 10/27/20 Range/Units 15:43 15:43 15:43 RBC 4.23 L (4.30-5.90) m/uL APTT 21.8 L (22.0-30.0) sec Sodium 136 L (137-145) mmol/L Glucose 71 L (74-99) mg/dL POC Glucose (mg/dL) (75-99) mg/dL Magnesium 2.4 H (1.6-2.3) mg/dL Troponin I (0.000-0.034) ng/mL Total Protein 6.2 L (6.3-8.2) g/dL 10/27/20 10/27/20 Range/Units 15:43 17:29 RBC (4.30-5.90) m/uL APTT (22.0-30.0) sec Sodium (137-145) mmol/L Glucose (74-99) mg/dL POC Glucose (mg/dL) 236 H (75-99) mg/dL Magnesium (1.6-2.3) mg/dL Troponin I 0.346 H* (0.000-0.034) ng/mL Total Protein (6.3-8.2) g/dL Assessment and Plan Assessment: Chest pain History of CAD -Admit to telemetry -Cardiology consult -Trend troponins -EKG/nitro when necessary for chest pain -Aspirin noted, aspirin 81 mg daily -Plavix 75 mg daily -Atorvastatin 80 mg daily at bedtime -Initiated metoprolol 12.5 mg twice a day -Heparin drip Hypertension Hyperlipidemia -Imdur -Metoprolol COPD without exacerbation -DuoNeb when necessary -Outpatient pulmonary follow-up Mood disorder -Continue BuSpar -Continue trazodone -Continue Ativan when necessary Nicotine abuse Heroin/cocaine abuse in rehab -Nicotine patches if requested -Return to [facility] for rehab reguarding heroin/cocaine DVT prophylaxis addressed with therapeutic anticoagulation Patient is a DO NOT RESUSCITATE/DO NOT INTUBATE
[2020-10-27] MEDS: METOPROLOL TARTRATE 12.5 MG TAB PO SCH (21:41)
[2020-10-27] MEDS: ATORVASTATIN 80 MG TAB PO SCH (21:42)
[2020-10-27] MEDS: traZODone HCL 50 MG TAB PO SCH (21:42)
[2020-10-28 00:47] LABS: Glucose,Whole Blood 139 mg/dL (75-99)
[2020-10-28 05:38] LABS: Basophils # (A) 0.1 k/uL (0-0.2); Basophils % (A) 1 %; Eosinophils # (A) 0.1 k/uL (0-0.7); Eosinophils % (A) 2 %; HCT 41.1 % (39.0-53.0); HGB 13.5 gm/dL (13.0-17.5); Lymphocytes # (A) 1.7 k/uL (1.0-4.8); Lymphocytes % (A) 30 %; MCH 31.1 pg (25.0-35.0); MCV 94.2 fL (80.0-100.0); Mean Platelet Volume 6.8; Monocytes # (A) 0.3 k/uL (0-1.0); Monocytes % (A) 6 %; Neutrophils # (A) 3.4 k/uL (1.3-7.7); Neutrophils % (A) 60 %; Platelet Count 279 k/uL (150-450); RBC 4.36 m/uL (4.30-5.90); RDW 13.3 % (11.5-15.5); WBC 5.7 k/uL (3.8-10.6)
[2020-10-28 05:56] LABS: African American GFR (CKD) >90 (>60 ml/min/1.73 sqM); Anion Gap 3 mmol/L; Blood Urea Nitrogen 10 mg/dL (9-20); Calcium 9.4 mg/dL (8.4-10.2); Carbon Dioxide 31 mmol/L (22-30); Chloride 104 mmol/L (98-107); Cholesterol 231 mg/dL (<200); Glucose 90 mg/dL (74-99); HDL Cholesterol 49 mg/dL (40-60); LDL Cholesterol,Calculated 167 mg/dL (0-99); Magnesium 2.1 mg/dL (1.6-2.3); Non-African American GFR(CKD) >90 (>60 ml/min/1.73 sqM); Potassium 4.3 mmol/L (3.5-5.1); Sodium 138 mmol/L (137-145); Triglycerides 76 mg/dL (<150)
[2020-10-28 08:17] LABS: Glucose,Whole Blood 93 mg/dL (75-99)
[2020-10-28] MEDS: ASPIRIN 81 MG PO SCH (08:57)
[2020-10-28] MEDS: METOPROLOL TARTRATE 12.5 MG TAB PO SCH ×2 (08:57→20:57)
[2020-10-28] MEDS: CLOPIDOGREL 75 MG TAB PO SCH (08:57)
[2020-10-28] MEDS: ISOSORBIDE MONONITRATE ER 30 MG TAB.ER.24H PO SCH (08:57)
[2020-10-28] MEDS: MULTIVITAMINS, THERA 1 EACH TAB PO SCH (09:00)
[2020-10-28] MEDS ORDERED: ASPIRIN 325 MG TAB PO SCH (09:00)
--- NOTE | 2020-10-28 12:00 | ECHOF ---
Referral Reason:chest pain MEASUREMENTS -------- HEIGHT: 170.2 cm WEIGHT: 63.5 kg BP: 132/79 RVIDd: 2.8 cm (< 3.3) IVSd: 1.1 cm (0.6 - 1.1) LVIDd: 4.4 cm (3.9 - 5.3) LVPWd: 1.3 cm (0.6 - 1.1) IVSs: 1.2 cm LVIDs: 3.2 cm LVPWs: 1.3 cm LA Diam: 3.8 cm (2.7 - 3.8) Ao Diam: 3.2 cm (2.0 - 3.7) AV Cusp: 1.7 cm (1.5 - 2.6) MV EXCURSION: 23.688 mm (> 18.000) MV EF SLOPE: 144 mm/s (70 - 150) EPSS: 0.4 cm MV E Sheng: 0.40 m/s MV DecT: 261 ms MV A Sheng: 0.61 m/s MV E/A Ratio: 0.65 RAP: 5.00 mmHg RVSP: 21.36 mmHg FINDINGS -------- Sinus rhythm. This was a technically adequate study. The left ventricular size is normal. Overall left ventricular systolic function is moderately impai red with, an EF between 35 - 40 %. Mid anterior LV wall motion is hypokinetic. Apical anterior L V wall motion is hypokinetic. Apical lateral LV wall motion is hypokinetic. Apical septum LV wa ll motion is hypokinetic. [place] Hypokinesis. The right ventricle is normal in size. The left atrial size is normal. The right atrial size is normal. 5.0mg OF [place] UTLIZED: 2 OR MORE WALL SEGMENTS NOT VISUALIZED. The aortic valve is trileaflet and appears structurally normal. There is mild aortic regurgitation. The mitral valve is normal. Mild mitral regurgitation is present. The tricuspid valve appears structurally normal. Mild tricuspid regurgitation present. Right vent ricular systolic pressure is normal at < 35 mmHg. There is no pulmonic regurgitation present. The aortic root size is normal. There is no pericardial effusion. CONCLUSIONS -------- 1. The left ventricular size is normal. 2. Overall left ventricular systolic function is moderately impaired with, an EF between 35 - 40 %. 3. Mid anterior LV wall motion is hypokinetic. 4. Apical anterior LV wall motion is hypokinetic. 5. Apical lateral LV wall motion is hypokinetic. 6. Apical septum LV wall motion is hypokinetic. 7. [place] Hypokinesis. 8. The left atrial size is normal. 9. 5.0mg OF [place] UTLIZED: 2 OR MORE WALL SEGMENTS NOT VISUALIZED. 10. There is mild aortic regurgitation. 11. Mild mitral regurgitation is present. 12. Mild tricuspid regurgitation present. 13. There is no pericardial effusion. [employer]: Gabi Loja RDCS
[2020-10-28 12:59] LABS: Glucose,Whole Blood 106 mg/dL (75-99)
--- NOTE | 2020-10-28 13:30 | P.CRDCN ---
History of Present Illness History of present illness: HISTORY OF PRESENTING ILLNESS This is a pleasant 60-year-old male past medical history significant for CAD with PCI, hypertension, hyperlipidemia, COPD, heronin/cocaine use, nicotine dependence smokes 1-2PPD. He follows in the office with Dr. Alves in [place]. We have been asked to see in consultation for chest pain. Patient is seen and examined in the emergency department. He started having left sided sharp chest pain yesterday, lasted a couple hours, resolved. Pain is exertional, it is non-radiating. He states he recently had a heart catheterization, unsure of these results. He cannot remember whether this was how it felt when he had his prior AR. He says that since these arrived, his pain has resolved. Associated mild nausea. Denies palpitations, shortness of breath, diaphoresis. Denies symptoms of orthopnea or PND. States he has had an AR prior. Denies history of diabetes or stroke. Unable to give family history. Laboratory data reviewed, Troponin 0.34-->0.38-->0.36, CBC unremarkable, sodium 138, potassium 4.3, serum creatinine 0.71, triglycerides 76, cholesterol 231, LDL 167, HDL 49. Current home cardiac medications not up to date. DIAGNOSTICS EKG reveals sinus bradycardia, HR 50s Twave inversions in leads V4-V6, I and aVL. Second EKG sinus bradycardia, heart rate 58, with PVC, similar T-wave change. Prior EKG in 2017 with similar findings Last Cardiac Catheterization within the past year- waiting for results Telemetry tracings- patient not on cardiac telemetry Chest xray no acute cardiopulmonary process REVIEW OF SYSTEMS At the time of my exam: CONSTITUTIONAL: Denies fever or chills. CARDIOVASCULAR: +chest pain Denies shortness of breath, orthopnea, PND or palpitations. RESPIRATORY: Denies cough. GASTROINTESTINAL: +nausea Denies abdominal pain, diarrhea, constipation, vomiting. MUSCULOSKELETAL: Denies myalgias. NEUROLOGIC: Denies numbness, tingling, headacbe or weakness. ENDOCRINE: Denies fatigue, weight change, polydipsia or polyurina. GENITOURINARY: Denies burning, hematuria or urgency with micturation. HEMATOLOGIC: Denies history of anemia or bleeding. PHYSICAL EXAMINATION Blood pressure [] heart rate [] afebrile and maintaining oxygen saturation on []. CONSTITUTIONAL: No apparent distress. HEENT: Head is normocephalic. Pupils are equal, round. Sclerae anicteric. Mucous membranes of the mouth are moist. No JVD. No carotid bruit. CHEST EXAMINATION: Lungs are clear to auscultation. No chest wall tenderness is noted on palpation or with deep breathing. HEART EXAMINATION: Regular rate and rhythm. S1, S2 heard. No murmurs, gallops or rub. ABDOMEN: Soft, nontender. Positive bowel sounds. EXTREMITIES: 2+ peripheral pulses, no lower extremity edema and no calf tenderness NEUROLOGIC EXAMINATION: Patient is awake, alert and oriented x3. ASSESSMENT Chest pain, with mildly elevated troponin Coronary artery disease s/p previous PCI, unknown details Hypertension Hyperlipidemia COPD Poly substance abuse- Heronin/cocaine use Nicotine dependence smokes 1-2PPD. PLAN Obtain 2D echocardiogram and doppler study to assess cardiac structure and function. Check another troponin [facility] to determine next plan Will make patient NPO at midnight Continue heparin drip, aspirin, statin, plavix, metoprolol tartrate, imdur Smoking cessation discussed and highly recommended. Thank you kindly for this consultation. Nurse Practitioner note has been reviewed, I agree with a documented findings and plan of care. Patient was seen and examined. Past Medical History Past Medical History: Hyperlipidemia, Hypertension, Myocardial Infarction (AR), Neurologic Disorder, Osteoarthritis (OA) Last Myocardial Infarction Date:: 1996 History of Any Multi-Drug Resistant Organisms: None Reported Past Surgical History: Adenoidectomy, Heart Catheterization With Stent, Orthopedic Surgery, Tonsillectomy Additional Past Surgical History / Comment(s): right finger, Past Anesthesia/Blood Transfusion Reactions: No Reported Reaction Date of Last Stent Placement:: 2019 Past Psychological History: Bipolar Smoking Status: Current every day smoker Past Alcohol Use History: Daily Past Drug Use History: Cocaine, Heroin, Prescription Drug Abuse Additional Drug Use History / Comment(s): quit heroin 3 weeks ago - Past Family History Mother Family Medical History: Neurologic Disorder Additional Family Medical History / Comment(s): suicide Father Family Medical History: Cancer Additional Family Medical History / Comment(s): lung cancer- Medications and Allergies Home Medications Medication Instructions Recorded Confirmed Type Multivitamins, Thera [Multivitamin 1 tab PO DAILY 01/26/17 10/27/20 History (formulary)] Acetaminophen [Tylenol Arthritis] 650 mg PO Q4H PRN 10/27/20 10/27/20 History Calcium 1000mg/Magnesium 500mg 1 cap PO TID PRN 10/27/20 10/27/20 History Calcium/Magnesium/Zinc 2 tab PO TID PRN 10/27/20 10/27/20 History [Fsuaodg-Jseqnqoqe-Rrnr Tablet] Chlorpheniramine Maleate 4 mg PO Q4H PRN 10/27/20 10/27/20 History [Chlor-Trimeton] Ibuprofen [Motrin] 600 mg PO Q6HR PRN 10/27/20 10/27/20 History Isosorbide Mononitrate ER [Imdur] 30 mg PO DAILY 10/27/20 10/27/20 History LORazepam [Ativan] 1 - 2 mg PO Q4H PRN 10/27/20 10/27/20 History busPIRone HCl [Buspar] 10 mg PO TID PRN 10/27/20 10/27/20 History ondansetron HCL [Zofran] 8 mg PO Q6H PRN 10/27/20 10/27/20 History traZODone HCL 50 - 150 mg PO HS 10/27/20 10/27/20 History Allergies Allergy/AdvReac Type Severity Reaction Status Date / Time Penicillins Allergy Rash/Hives Verified 10/27/20 16:52 Physical Exam Vitals: Vital Signs Temp Pulse Pulse Resp BP BP Pulse Ox 10/28/20 04:00 97.3 F L 55 L 18 102/66 96 10/28/20 01:02 66 18 10/28/20 00:00 97.4 F L 66 18 102/61 97 10/27/20 20:00 97.6 F 62 18 115/78 96 10/27/20 16:30 59 L 19 114/83 98 10/27/20 16:00 55 L 19 125/87 99 10/27/20 15:31 98.1 F 58 L 18 125/87 98 Intake and Output 10/27/20 10/28/20 10/28/20 22:59 06:59 14:59 Intake Total 111.188 Output Total 750 450 Balance -750 -338.812 Intake: Intake, IV Titration 111.188 Amount Heparin Sod,Pork in 0.45% 111.188 NaCl 25,000 unit In 0.45 % NaCl 1 250ml.bag @ 12 UNITS/KG/HR 7.62 mls/hr IV .Q24H [facility] Rx#: [id number] Output: Urine 750 450 Other: Voiding Method Urinal Urinal Weight 63.503 kg Results 10/28/20 05:12 10/28/20 05:12 Cardiac Enzymes 10/27/20 10/27/20 10/27/20 Range/Units 15:43 15:43 18:47 AST 35 (17-59) U/L Troponin I 0.346 H* 0.381 H* (0.000-0.034) ng/mL 10/27/20 Range/Units 22:00 AST (17-59) U/L Troponin I 0.368 H* (0.000-0.034) ng/mL Coagulation 10/27/20 10/27/20 10/28/20 Range/Units 15:43 22:00 05:12 PT 9.6 (9.0-12.0) sec APTT 21.8 L 33.7 H 35.5 H (22.0-30.0) sec Lipids 10/28/20 Range/Units 05:12 Triglycerides 76 (<150) mg/dL Cholesterol 231 H (<200) mg/dL HDL Cholesterol 49 (40-60) mg/dL CBC 10/27/20 10/28/20 Range/Units 15:43 05:12 WBC 6.1 5.7 (3.8-10.6) k/uL RBC 4.23 L 4.36 (4.30-5.90) m/uL Hgb 13.5 13.5 (13.0-17.5) gm/dL Hct 39.9 41.1 (39.0-53.0) % Plt Count 321 279 (150-450) k/uL Comprehensive Metabolic Panel 10/27/20 10/28/20 Range/Units 15:43 05:12 Sodium 136 L 138 (137-145) mmol/L Potassium 4.5 4.3 (3.5-5.1) mmol/L Chloride 101 104 (98-107) mmol/L Carbon Dioxide 30 31 H (22-30) mmol/L BUN 15 10 (9-20) mg/dL Creatinine 0.71 0.71 (0.66-1.25) mg/dL Glucose 71 L 90 (74-99) mg/dL Calcium 9.3 9.4 (8.4-10.2) mg/dL AST 35 (17-59) U/L ALT 29 (4-49) U/L Alkaline Phosphatase 63 (38-126) U/L Total Protein 6.2 L (6.3-8.2) g/dL Albumin 3.5 (3.5-5.0) g/dL Current Medications Generic Name Dose Route Start Last Admin Trade Name Freq PRN Reason Stop Dose Admin Acetaminophen 650 mg 10/27/20 17:47 Acetaminophen Tab 325 Mg Tab PO Q6HR PRN Mild Pain or Fever > 100.5 Aspirin 81 mg 10/28/20 09:00 Aspirin 81 Mg PO DAILY [facility] Atorvastatin Calcium 80 mg 10/27/20 21:00 10/27/20 21:42 Atorvastatin 80 Mg Tab PO 80 mg HS [facility] Administration Buspirone HCl 10 mg 10/27/20 17:48 Buspirone Hcl 10 Mg Tab PO TID PRN Anxiety Clopidogrel Bisulfate 75 mg 10/28/20 09:00 Clopidogrel 75 Mg Tab PO DAILY [facility] Diphenhydramine HCl 25 mg 10/27/20 17:48 Diphenhydramine 25 Mg Cap PO Q4H PRN Allergy Symptoms Heparin Sodium (Porcine) 0 unit 10/27/20 16:36 Heparin Sodium 1,000 Un/Ml (10ml Vl) IV PER PROTOCOL PRN Low PTT Protocol Heparin Sodium/Sodium Chloride 250 mls @ 7.62 mls/hr 10/27/20 16:45 10/28/20 05:58 25,000 unit/ Sodium Chloride IV 17 units/kg/hr .Q24H [facility] 10.796 mls/hr Titration Protocol 12 UNITS/KG/HR Isosorbide Mononitrate 30 mg 10/28/20 09:00 Isosorbide Mononitrate Er 30 Mg Tab.Er.24h PO DAILY [facility] Lorazepam 1 mg 10/27/20 17:48 Lorazepam 1 Mg Tab PO Q4H PRN Anxiety Metoprolol Tartrate 12.5 mg 10/27/20 21:00 10/27/20 21:41 Metoprolol Tartrate 12.5 Mg Tab PO 12.5 mg BID [facility] Administration Multivitamins 1 each 10/28/20 09:00 Multivitamins, Thera 1 Each Tab PO DAILY [facility] Naloxone HCl 0.2 mg 10/27/20 17:47 Naloxone 0.4 Mg/Ml 1 Ml Vial IV Q2M PRN Opioid Reversal Nitroglycerin 0.4 mg 10/27/20 17:04 Nitroglycerin Sl Tabs 0.4 Mg Tab SUBLINGUAL Q5M PRN Chest Pain Ondansetron HCl 8 mg 10/27/20 17:48 Ondansetron 4 Mg Tab PO Q6H PRN Nausea And Vomiting Trazodone HCl 50 mg 10/27/20 21:00 10/27/20 21:42 Trazodone Hcl 50 Mg Tab PO 50 mg HS [facility] Administration Intake and Output 10/27/20 10/28/20 10/28/20 22:59 06:59 14:59 Intake Total 111.188 Output Total 750 450 Balance -750 -338.812 Intake: Intake, IV Titration 111.188 Amount Heparin Sod,Pork in 0.45% 111.188 NaCl 25,000 unit In 0.45 % NaCl 1 250ml.bag @ 12 UNITS/KG/HR 7.62 mls/hr IV .Q24H [facility] Rx#: [id number] Output: Urine 750 450 Other: Voiding Method Urinal Urinal Weight 63.503 kg 10/28/20 05:12 10/28/20 05:12
--- NOTE | 2020-10-28 15:58 | P.PN ---
Subjective Progress Note Date: 10/28/20 No new complaints today. Pt expresses wish to leave hospital, but understands medical necessity to stay in house. Objective - Vital Signs Vital signs: Vital Signs Temp 97.3 F L 10/28/20 04:00 Pulse 57 L 10/28/20 13:50 Resp 18 10/28/20 13:50 BP 99/67 10/28/20 13:50 Pulse Ox 97 10/28/20 13:50 Intake & Output 10/27/20 10/28/20 10/28/20 18:59 06:59 18:59 Intake Total 111.188 84.569 Output Total 1200 Balance -1088.812 84.569 Weight 63.503 kg 63.503 kg Intake: Intake, IV Titration 111.188 84.569 Amount Heparin Sod,Pork in 0.45% 111.188 84.569 NaCl 25,000 unit In 0.45 % NaCl 1 250ml.bag @ 12 UNITS/KG/HR 7.62 mls/hr IV .Q24H [facility] Rx#: [id number] Output: Urine 1200 Other: Voiding Method Urinal - Exam Gen: awake, alert HEENT: normocephalic, atraumatic, good hearing acuity, moist mucous membranes Resp: good air exchange, breathing comfortably with no accessory muscle use, clear to auscultation bilaterally without wheezes or crackles, symmetric chest expansion CVS: good distal perfusion x 4, regular rate and rhythm without murmurs GI: soft, NTTP, ND, appropriate bowel sounds : no SPT, no CVAT, aj catheter not present MSK: no pitting edema, no clubbing Neuro: non-focal, moving all extremities Psych: cooperative, euthymic mood - Labs CBC & Chem 7: 10/28/20 05:12 10/28/20 05:12 Labs: Abnormal Lab Results - Last 24 Hours (Table) 10/27/20 10/27/20 10/27/20 Range/Units 15:43 15:43 15:43 RBC 4.23 L (4.30-5.90) m/uL APTT 21.8 L (22.0-30.0) sec Sodium 136 L (137-145) mmol/L Carbon Dioxide (22-30) mmol/L Glucose 71 L (74-99) mg/dL POC Glucose (mg/dL) (75-99) mg/dL Magnesium 2.4 H (1.6-2.3) mg/dL Troponin I (0.000-0.034) ng/mL Total Protein 6.2 L (6.3-8.2) g/dL Cholesterol (<200) mg/dL LDL Cholesterol, Calc (0-99) mg/dL 10/27/20 10/27/20 10/27/20 Range/Units 15:43 17:29 18:47 RBC (4.30-5.90) m/uL APTT (22.0-30.0) sec Sodium (137-145) mmol/L Carbon Dioxide (22-30) mmol/L Glucose (74-99) mg/dL POC Glucose (mg/dL) 236 H (75-99) mg/dL Magnesium (1.6-2.3) mg/dL Troponin I 0.346 H* 0.381 H* (0.000-0.034) ng/mL Total Protein (6.3-8.2) g/dL Cholesterol (<200) mg/dL LDL Cholesterol, Calc (0-99) mg/dL 10/27/20 10/27/20 10/28/20 Range/Units 22:00 22:00 00:44 RBC (4.30-5.90) m/uL APTT 33.7 H (22.0-30.0) sec Sodium (137-145) mmol/L Carbon Dioxide (22-30) mmol/L Glucose (74-99) mg/dL POC Glucose (mg/dL) 139 H (75-99) mg/dL Magnesium (1.6-2.3) mg/dL Troponin I 0.368 H* (0.000-0.034) ng/mL Total Protein (6.3-8.2) g/dL Cholesterol (<200) mg/dL LDL Cholesterol, Calc (0-99) mg/dL 10/28/20 10/28/20 10/28/20 Range/Units 05:12 05:12 09:15 RBC (4.30-5.90) m/uL APTT 35.5 H (22.0-30.0) sec Sodium (137-145) mmol/L Carbon Dioxide 31 H (22-30) mmol/L Glucose (74-99) mg/dL POC Glucose (mg/dL) (75-99) mg/dL Magnesium (1.6-2.3) mg/dL Troponin I 0.225 H* (0.000-0.034) ng/mL Total Protein (6.3-8.2) g/dL Cholesterol 231 H (<200) mg/dL LDL Cholesterol, Calc 167 H (0-99) mg/dL 10/28/20 10/28/20 Range/Units 11:48 12:57 RBC (4.30-5.90) m/uL APTT 41.6 H (22.0-30.0) sec Sodium (137-145) mmol/L Carbon Dioxide (22-30) mmol/L Glucose (74-99) mg/dL POC Glucose (mg/dL) 106 H (75-99) mg/dL Magnesium (1.6-2.3) mg/dL Troponin I (0.000-0.034) ng/mL Total Protein (6.3-8.2) g/dL Cholesterol (<200) mg/dL LDL Cholesterol, Calc (0-99) mg/dL Assessment and Plan Assessment: Chest pain History of CAD -Admit to telemetry -Cardiology consult = possible [facility] 10/29, pending outside records -Trend troponins -EKG/nitro when necessary for chest pain -Aspirin noted, aspirin 81 mg daily -Plavix 75 mg daily -Atorvastatin 80 mg daily at bedtime -Initiated metoprolol 12.5 mg twice a day -Heparin drip Hypertension Hyperlipidemia -Imdur -Metoprolol COPD without exacerbation -DuoNeb when necessary -Outpatient pulmonary follow-up Mood disorder -Continue BuSpar -Continue trazodone -Continue Ativan when necessary Nicotine abuse Heroin/cocaine abuse currently in rehab -Nicotine patch of 21mg/24hr -Return to [place] outpatient for rehab reguarding heroin/cocaine DVT prophylaxis addressed with therapeutic anticoagulation Patient is a DO NOT RESUSCITATE/DO NOT INTUBATE
[2020-10-28] MEDS: NICOTINE 21MG/24HR PATCH TRANSDERM SCH (16:07)
[2020-10-28] MEDS: HEPARIN SOD,PORK IN 0.45% NACL 25,000 UNIT in 0.45% NACL 1 250ML.BAG IV SCH (16:09)
[2020-10-28] MEDS: HYDROcodone/APAP 5-325MG 1 EACH TAB PO PRN ×2 (16:16→23:12)
[2020-10-28] MEDS: ATORVASTATIN 80 MG TAB PO SCH (20:57)
[2020-10-28] MEDS: traZODone HCL 50 MG TAB PO SCH (20:57)
[2020-10-29 08:32] LABS: African American GFR (CKD) >90 (>60 ml/min/1.73 sqM); Anion Gap 3 mmol/L; Blood Urea Nitrogen 14 mg/dL (9-20); Calcium 9.1 mg/dL (8.4-10.2); Carbon Dioxide 30 mmol/L (22-30); Chloride 103 mmol/L (98-107); Glucose 94 mg/dL (74-99); Non-African American GFR(CKD) >90 (>60 ml/min/1.73 sqM); Potassium 4.5 mmol/L (3.5-5.1); Sodium 136 mmol/L (137-145)
[2020-10-29] MEDS: ASPIRIN 81 MG PO SCH (08:51)
[2020-10-29] MEDS: NICOTINE 21MG/24HR PATCH TRANSDERM SCH (08:51)
[2020-10-29] MEDS: CLOPIDOGREL 75 MG TAB PO SCH (08:51)
[2020-10-29] MEDS: MULTIVITAMINS, THERA 1 EACH TAB PO SCH (08:51)
[2020-10-29] MEDS: METOPROLOL TARTRATE 12.5 MG TAB PO SCH ×2 (08:51→20:24)
[2020-10-29] MEDS: ISOSORBIDE MONONITRATE ER 30 MG TAB.ER.24H PO SCH (08:51)
[2020-10-29] MEDS ORDERED: SODIUM CHLORIDE 0.9% 1,000 ML in EMPTY BAG 1 BAG IV ONE (10:16)
[2020-10-29] MEDS ORDERED: VERAPAMIL 2.5 MG/ML 2 ML AMP ONE (12:22)
[2020-10-29] MEDS ORDERED: HEPARIN SODIUM 1,000 UN/ML (10ML VL) ONE (12:22)
[2020-10-29] MEDS ORDERED: LIDOCAINE 1% INJ 10MG/ML (20 ML MDV) ONE (12:22)
[2020-10-29] MEDS ORDERED: fentaNYL (PF) 50 MCG/ML 2 ML AMP ONE (12:22)
[2020-10-29] MEDS ORDERED: fentaNYL (PF) 50 MCG/ML 2 ML AMP IV ONE (12:36)
[2020-10-29] MEDS ORDERED: MIDAZOLAM 2 MG/2 ML VIAL IV ONE (12:37)
[2020-10-29] MEDS ORDERED: LIDOCAINE 1% INJ 10MG/ML (20 ML MDV) SQ ONE ×2 (12:37→12:39)
[2020-10-29] MEDS ORDERED: VERAPAMIL SYRINGE (5 MG/10 ML) INTRAARTER ONE (12:39)
[2020-10-29] MEDS ORDERED: IV FLUID CONTINUATION 1,000 ML IV ONE (12:40)
[2020-10-29] MEDS ORDERED: RX INFO: IV CONTRAST WAS GIVEN 1 EACH MISC MISCELLANE PRN (12:53)
[2020-10-29] MEDS ORDERED: IOPAMIDOL-370 125ML BTL INJ ONE (13:05)
--- NOTE | 2020-10-29 14:22 | P.PN ---
Subjective Pt has no new complaint today. [facility] data sheet reviewed, no PCI done during procedure. Pt returned to 3S. Objective - Vital Signs Vital signs: Vital Signs Temp 96.4 F L 10/29/20 08:00 Pulse 50 L 10/29/20 13:30 Resp 16 10/29/20 13:30 BP 112/79 10/29/20 13:30 Pulse Ox 99 10/29/20 13:30 Intake & Output 10/28/20 10/29/20 10/29/20 18:59 06:59 18:59 Intake Total 832.924 200 75 Balance 832.924 200 75 Weight 62 kg Intake: IV 75 Intake, IV Titration 112.924 Amount Heparin Sod,Pork in 0.45% 112.924 NaCl 25,000 unit In 0.45 % NaCl 1 250ml.bag @ 12 UNITS/KG/HR 7.62 mls/hr IV .Q24H [facility] Rx#: [id number] Oral 720 200 0 Other: Voiding Method Urinal Urinal # Voids 2 - Exam Gen: awake, alert HEENT: normocephalic, atraumatic, good hearing acuity, moist mucous membranes Resp: good air exchange, breathing comfortably with no accessory muscle use, clear to auscultation bilaterally without wheezes or crackles, symmetric chest expansion CVS: good distal perfusion x 4, regular rate and rhythm without murmurs GI: soft, NTTP, ND, appropriate bowel sounds : no SPT, no CVAT, aj catheter not present MSK: no pitting edema, no clubbing Neuro: non-focal, moving all extremities Psych: cooperative, euthymic mood - Labs CBC & Chem 7: 10/28/20 05:12 10/29/20 07:39 Labs: Abnormal Lab Results - Last 24 Hours (Table) 10/28/20 10/29/20 10/29/20 Range/Units 20:06 07:39 07:39 APTT 51.7 H 54.9 H (22.0-30.0) sec Sodium 136 L (137-145) mmol/L Assessment and Plan Assessment: Chest pain History of CAD -Admit to telemetry -Cardiology consult = [facility] 10/29, no PCI - pending report -Trend troponins - remain elevated -EKG/nitro when necessary for chest pain -Aspirin noted, aspirin 81 mg daily -Plavix 75 mg daily -Atorvastatin 80 mg daily at bedtime -Initiated metoprolol 12.5 mg twice a day -Heparin drip Hypertension Hyperlipidemia -Imdur -Metoprolol COPD without exacerbation -DuoNeb when necessary -Outpatient pulmonary follow-up Mood disorder -Continue BuSpar -Continue trazodone -Continue Ativan when necessary Nicotine abuse Heroin/cocaine abuse currently in rehab -Nicotine patch of 21mg/24hr -Return to [place] outpatient for rehab reguarding heroin/cocaine DVT prophylaxis addressed with therapeutic anticoagulation Patient is a DO NOT RESUSCITATE/DO NOT INTUBATE
--- NOTE | 2020-10-29 16:40 | P.CARDCATH ---
Date of Procedure: 10/29/20 Preoperative Diagnosis: Chest pain and positive troponins Postoperative Diagnosis: Moderate to severe disease involving the ostium of the PLV branch of the right coronary artery. Patent stents in the PDA and also in the LAD Procedure(s) Performed: Left heart catheterization without left ventriculography Description of Procedure: HISTORY: This is a 60-year-old gentleman with history of ischemic heart disease with previous stent placement. Patient had stent placement of the distal RCA in the ostium of the PDA and also stent placement of the mid LAD done in October in [facility]. Patient is admitted to the hospital this time with complaints of chest pain and abnormal troponin values. Patient is advised to have cardiac catheterization for definitive diagnosis CONSENT:I have discussed the risks, benefits and alternative therapies for the above-mentioned procedure and for both sedation/analgesia as well as necessary blood product administration, if indicated, as they pertain to this patient. T he patient has indicated understanding and acceptance of the risks and procedures discussed. PROCEDURE: Patient was brought to the lab in a fasting state. Patient was given some IV sedation. The right wrist is infiltrated with lidocaine and right radial artery was entered using Seldinger technique. A 6-Latvian catheter was left in place and selective coronary arteriography was performed. Patient tolerated the procedure well. TR band was applied for hemostasis. No immediate complications were noted and patient was transferred to telemetry unit in a stable condition Conscious Sedation: Versed. 1 mg Fentanyl 50 g Duration 12 minutes HEMODYNAMICS: The aortic pressure is about 115/70. Left ventricular end- diastolic pressure is about 5-10. There was no gradient across the aortic valve SELECTIVE CORONARY ARTERIOGRAPHY: LEFT MAIN: This is a normal length and free of occlusive disease THE LEFT ANTERIOR DESCENDING CORONARY ARTERY:. His is a good caliber vessel with patent stents in midportion. The diagonal branches also appear to be free of occlusive disease THE LEFT CIRCUMFLEX AND IS CORONARY ARTERY:. This is small nondominant vessel free of occlusive disease THE RIGHT CORONARY ARTERY:. This is a dominant vessel with patent stents in the distal RCA extending to the PDA ostium. There is about 60-70% stenosis of the ostium of the PLV branch LEFT VENTRICULOGRAPHY: Not performed FINAL IMPRESSION: Moderate to critical stenosis involving the ostium of the PLV branch PLAN: Discussed with the doctor Macho was the on-call food and beverage assistant manager. Because of the location of the lesion in the history of previous stent placement of the PDA, recommended maximum medical therapy PROGNOSIS:. Guarded
[2020-10-29] MEDS: HEPARIN SOD,PORK IN 0.45% NACL 25,000 UNIT in 0.45% NACL 1 250ML.BAG IV SCH (16:55)
[2020-10-29] MEDS: SODIUM CHLORIDE 0.9% 1,000 ML IV SCH (16:57)
[2020-10-29] MEDS: HYDROcodone/APAP 5-325MG 1 EACH TAB PO PRN (20:24)
[2020-10-29] MEDS: ATORVASTATIN 80 MG TAB PO SCH (20:24)
[2020-10-29] MEDS: traZODone HCL 50 MG TAB PO SCH (20:24)
[2020-10-29 22:22] VITALS: RESP 18
[2020-10-30] MEDS: SODIUM CHLORIDE 0.9% 1,000 ML IV SCH (05:41)
[2020-10-30] MEDS: HYDROcodone/APAP 5-325MG 1 EACH TAB PO PRN (06:54)
[2020-10-30] MEDS ORDERED: HEPARIN SODIUM,PORCINE 2,500 UNIT in SODIUM CHLORIDE 0.9% 250 ML IRRIGATION PRN (07:00)
[2020-10-30] MEDS ORDERED: HEPARIN SODIUM,PORCINE 10,000 UNIT in SODIUM CHLORIDE 0.9% 1,000 ML IRRIGATION PRN (07:00)
[2020-10-30] MEDS: METOPROLOL TARTRATE 12.5 MG TAB PO SCH (08:54)
[2020-10-30] MEDS: MULTIVITAMINS, THERA 1 EACH TAB PO SCH (08:54)
[2020-10-30] MEDS: ISOSORBIDE MONONITRATE ER 30 MG TAB.ER.24H PO SCH (08:54)
[2020-10-30] MEDS: NICOTINE 21MG/24HR PATCH TRANSDERM SCH (08:54)
[2020-10-30] MEDS: CLOPIDOGREL 75 MG TAB PO SCH (08:54)
[2020-10-30] MEDS: ASPIRIN 81 MG PO SCH (08:54)
[2020-10-30 10:29] LABS: African American GFR (CKD) >90 (>60 ml/min/1.73 sqM); Anion Gap 5 mmol/L; Blood Urea Nitrogen 10 mg/dL (9-20); Calcium 9.2 mg/dL (8.4-10.2); Carbon Dioxide 29 mmol/L (22-30); Chloride 104 mmol/L (98-107); Glucose 95 mg/dL (74-99); Non-African American GFR(CKD) >90 (>60 ml/min/1.73 sqM); Potassium 4.6 mmol/L (3.5-5.1); Sodium 138 mmol/L (137-145)
--- NOTE | 2020-10-30 12:27 | P.PN ---
Subjective HISTORY OF PRESENTING ILLNESS This is a pleasant 60-year-old male past medical history significant for CAD with PCI, hypertension, hyperlipidemia, COPD, heronin/cocaine use, nicotine dependence smokes 1-2PPD. He follows in the office with Dr. Alves in [place]. We have been asked to see in consultation for chest pain. Patient is seen and examined in the emergency department. He started having left sided sharp chest pain yesterday, lasted a couple hours, resolved. Pain is exertional, it is non-radiating. He states he recently had a heart catheterization, unsure of these results. He cannot remember whether this was how it felt when he had his prior MO. He says that since these arrived, his pain has resolved. Associated mild nausea. Denies palpitations, shortness of breath, diaphoresis. Denies symptoms of orthopnea or PND. States he has had an MO prior. Denies history of diabetes or stroke. Unable to give family history. Laboratory data reviewed, Troponin 0.34-->0.38-->0.36, CBC unremarkable, sodium 138, potassium 4.3, serum creatinine 0.71, triglycerides 76, cholesterol 231, LDL 167, HDL 49. Current home cardiac medications not up to date. EKG reveals sinus bradycardia, HR 50s Twave inversions in leads V4-V6, I and aVL. Second EKG sinus bradycardia, heart rate 58, with PVC, similar T-wave change. Prior EKG in 2017 with similar findings Reports from [facility]: 10/2019 Cardiac catheterization- with PCI LAD, distal RCA extending to the PDA ostium. 10/29/20- patient underwent cardiac catheterization which revealed moderate to critical stenosis involving the ostium of the PLV branch, patent stents in LAD and patent stents RCA. Because of the location of the lesion and the history of previous stent placement of the PDA, recommended maximum medical therapy was advised 10/30/20: Patient seen and examined at bedside, no acute distress. Blood pressure 117/71, heart rate 62, afebrile, maintaining oxygen saturations on room air. Patient denies chest pain, shortness of breath, palpitations. PHYSICAL EXAMINATION GENERAL: Well-appearing, well-nourished and in no acute distress. NECK: Supple without JVD or thyromegaly. LUNGS: Breath sounds clear to auscultation bilaterally. Respiration equal and unlabored. No wheezes, rales or rhonchi. HEART: Regular rate and rhythm without murmurs, rubs or gallops. S1 and S2 heard. EXTREMITIES: Normal range of motion, no edema. No clubbing or cyanosis. Peripheral pulses intact. Right radial cath site, clean dry, no hematoma 2+ pulses ASSESSMENT Chest pain, with mildly elevated troponin s/p cardiac catheterization 10/29 Coronary artery disease s/p previous PCI, unknown details Hypertension Hyperlipidemia COPD Poly substance abuse- Heronin/cocaine use Nicotine dependence smokes 1-2PPD. PLAN From cardiology perspective patient stable to be discharged home. Recommend maximal medical therapy with aspirin 81 mg daily, atorvastatin 80 mg daily, metoprolol tartrate 12.5 mg twice a day, Plavix 75 mg daily, Imdur 30mg daily Patient encouraged to follow up with his carton marker machine Dr. Chris Alves at [facility] Nurse Practitioner note has been reviewed, I agree with a documented findings and plan of care. Patient was seen and examined. Objective - Vital Signs Vital signs: Vital Signs Temp 98.0 F 10/30/20 08:14 Pulse 62 10/30/20 10:51 Resp 18 10/30/20 10:51 BP 117/71 10/30/20 08:14 Pulse Ox 99 10/30/20 08:14 Intake & Output 10/29/20 10/30/20 10/30/20 18:59 06:59 18:59 Intake Total 675 1065 220 Balance 675 1065 220 Intake: IV 75 Intake, IV Titration 600 825 Amount Sodium Chloride 0.9% 1, 600 825 000 ml @ 75 mls/hr IV . [id number] [facility] Rx#:[id number] Oral 0 240 220 Other: Voiding Method Urinal Urinal Urinal # Voids 2 - Labs CBC & Chem 7: 10/28/20 05:12 10/30/20 09:16
[2020-10-30 12:36] VITALS: BP 131/80; PULSE 55; TEMP 97.6
--- NOTE | 2020-10-30 12:54 | P.DS ---
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 -Trended troponins - remained elevated -EKG/nitro when necessary for chest pain -Aspirin loaded, then aspirin 81 mg daily --> prescribed on discharge -Plavix 75 mg daily --> prescribed on discharge -Atorvastatin 80 mg daily at bedtime --> prescribed on discharge -Initiated metoprolol 12.5 mg twice a day --> prescribed on discharge -Heparin drip --> d/c'd on discharge Hypertension Hyperlipidemia -Imdur --> continued on discharge -Metoprolol --> see above COPD without exacerbation -DuoNeb when necessary -Outpatient pulmonary follow-up recommended with note to PCP requesting referral to pulmonary medicine and for PFTs, as well as low-dose chest CT scan screening for lung cancer Mood disorder -Continued BuSpar on discharge -Continued trazodone on discharge -Continued Ativan when necessary on discharge Nicotine abuse Heroin/cocaine abuse currently in rehab -Patient returned to [facility] for rehab reguarding heroin/cocaine on discharge -Cessation counseling given I spent 35 minutes preparing this discharge Assessment: Gen: awake, alert HEENT: normocephalic, atraumatic, good hearing acuity, moist mucous membranes Resp: good air exchange, breathing comfortably with no accessory muscle use, clear to auscultation bilaterally without wheezes or crackles, symmetric chest expansion CVS: good distal perfusion x 4, regular rate and rhythm without murmurs GI: soft, NTTP, ND, appropriate bowel sounds : no SPT, no CVAT, aj catheter not present MSK: no pitting edema, no clubbing Neuro: non-focal, moving all extremities Psych: cooperative, euthymic mood Patient Condition at Discharge: Good Plan - Discharge Summary Discharge Rx Participant: No New Discharge Prescriptions: New Aspirin 81 mg PO DAILY #30 chew Atorvastatin [Lipitor] 80 mg PO HS #30 tab Metoprolol Tartrate [Lopressor] 12.5 mg PO BID #60 tab Nitroglycerin Sl Tabs [Nitrostat] 0.4 mg SUBLINGUAL Q5M PRN #30 tab PRN Reason: Chest Pain Clopidogrel [Plavix] 75 mg PO DAILY #30 tab Continue Multivitamins, Thera [Multivitamin (formulary)] 1 tab PO DAILY busPIRone HCl [Buspar] 10 mg PO TID PRN PRN Reason: Anxiety Chlorpheniramine Maleate [Chlor-Trimeton] 4 mg PO Q4H PRN PRN Reason: Allergy Symptoms ondansetron HCL [Zofran] 8 mg PO Q6H PRN PRN Reason: Nausea And Vomiting traZODone HCL 50 - 150 mg PO HS Calcium/Magnesium/Zinc [Rizrtcr-Vnzwqisum-Tdmp Tablet] 2 tab PO TID PRN PRN Reason: Muscle Pain Calcium 1000mg/Magnesium 500mg 1 cap PO TID PRN PRN Reason: MUSCLE CRAMPS Acetaminophen [Tylenol Arthritis] 650 mg PO Q4H PRN PRN Reason: Fever And/ Or Pain Isosorbide Mononitrate ER [Imdur] 30 mg PO DAILY LORazepam [Ativan] 1 - 2 mg PO Q4H PRN PRN Reason: Anxiety Discontinued Ibuprofen [Motrin] 600 mg PO Q6HR PRN PRN Reason: Pain Discharge Medication List Multivitamins, Thera [Multivitamin (formulary)] 1 tab PO DAILY 01/26/17 [History] Acetaminophen [Tylenol Arthritis] 650 mg PO Q4H PRN 10/27/20 [History] Calcium 1000mg/Magnesium 500mg 1 cap PO TID PRN 10/27/20 [History] Calcium/Magnesium/Zinc [Tdygyan-Tyxungwcf-Sbwy Tablet] 2 tab PO TID PRN 10/27/20 [History] Chlorpheniramine Maleate [Chlor-Trimeton] 4 mg PO Q4H PRN 10/27/20 [History] Isosorbide Mononitrate ER [Imdur] 30 mg PO DAILY 10/27/20 [History] LORazepam [Ativan] 1 - 2 mg PO Q4H PRN 10/27/20 [History] busPIRone HCl [Buspar] 10 mg PO TID PRN 10/27/20 [History] ondansetron HCL [Zofran] 8 mg PO Q6H PRN 10/27/20 [History] traZODone HCL 50 - 150 mg PO HS 10/27/20 [History] Aspirin 81 mg PO DAILY #30 chew 10/30/20 [Rx] Atorvastatin [Lipitor] 80 mg PO HS #30 tab 10/30/20 [Rx] Clopidogrel [Plavix] 75 mg PO DAILY #30 tab 10/30/20 [Rx] Metoprolol Tartrate [Lopressor] 12.5 mg PO BID #60 tab 10/30/20 [Rx] Nitroglycerin Sl Tabs [Nitrostat] 0.4 mg SUBLINGUAL Q5M PRN #30 tab 10/30/20 [Rx] Follow up Appointment(s)/Referral(s): Nonstaff,Physician [Primary Care Provider] - 1-2 days Mg Bella MD [STAFF PHYSICIAN] - 11/10/20 3:00 pm ([facility] ) Activity/Diet/Wound Care/Special Instructions: Call [facility] for return at d/c. Discharge Disposition: OTHER INSTITUTION NOT DEFINED
== END 2020-10-30 15:35 | disposition other institution (70) | DRG 282 ==
LOC: EC 15:21 → 3SCARD 17:30
PROVIDERS: ADMIT Internal Medicine; ATTEND Internal Medicine
PROC: B2111ZZ Fluoroscopy of Multiple Coronary Arteries using Low Osmolar Contrast (ICD-10-PCS; 2020-10-29)
PROC: 4A023N7 Measurement of Cardiac Sampling and Pressure, Left Heart, Percutaneous Approach (ICD-10-PCS; principal; 2020-10-29 13:10)
DX: I21.4 Non-ST elevation (NSTEMI) myocardial infarction (principal); F11.10 Opioid abuse, uncomplicated; I25.10 Atherosclerotic heart disease of native coronary artery without angina pectoris; F17.200 Nicotine dependence, unspecified, uncomplicated; I25.2 Old myocardial infarction; Z95.5 Presence of coronary angioplasty implant and graft; Z88.0 Allergy status to penicillin; E78.5 Hyperlipidemia, unspecified; I10 Essential (primary) hypertension; M19.90 Unspecified osteoarthritis, unspecified site; Z80.1 Family history of malignant neoplasm of trachea, bronchus and lung; Z79.82 Long term (current) use of aspirin; Z79.02 Long term (current) use of antithrombotics/antiplatelets; J44.9 Chronic obstructive pulmonary disease, unspecified; F39 Unspecified mood [affective] disorder; F14.10 Cocaine abuse, uncomplicated; Z66 Do not resuscitate; Z20.822 Contact with and (suspected) exposure to COVID-19; I49.3 Ventricular premature depolarization; Z79.899 Other long term (current) drug therapy
CPT/HCPCS: 36415; 71046; 80048; 80053; 80061; 83690; 83735; 84484; 85025; 85610; 85730; 87636; 93005; 93306; 93458; 99285